=== PATIENT | female | born 1960 | race Caucasian/White ===

== ENCOUNTER 2022-12-04 08:57 | Outpatient (CLI) | payer MEDICAID, SELFPAY ==
--- NOTE | 2022-12-04 09:15 | XR_ITS ---
WS: [email or web address] XR knee RT 3V* [id number] REASON FOR EXAM: PAIN OF BILATERAL KNEE JOINTS FINDINGS: No fracture or focal bone lesion. Mild/moderate narrowing of the medial knee joint space with mild subchondral sclerosis. Lateral knee joint space is intact and well preserved. Patellofemoral joint space is intact without significant narrowing. Mild subchondral sclerosis and sm all osteophytosis of the patella. XR/XR knee RT 3V* [id number] IMPRESSION: Mild/moderate osteoarthritis in the right knee as above.
--- NOTE | 2022-12-04 09:24 | XR_ITS ---
WS: [email or web address] XR knee LT 3V* [id number] REASON FOR EXAM: PAIN IN BILATERAL KNEES FINDINGS: Moderate narrowing of the medial knee joint space with subchondral sclerosis and marginal osteophytos is. Lateral knee joint space is intact and well preserved. No significant narrowing of the patellofemoral joint space. Mild subchondral sclerosis and osteophyto sis of the patella. XR/XR knee LT 3V* [id number] IMPRESSION: Moderate osteoarthritis of the left knee as above.
== END 2022-12-04 08:58 | disposition home or self-care (01) ==
PROVIDERS: Family Provider Nurse Practitioner; Visit Provider Family Medicine
DX: M17.0 Bilateral primary osteoarthritis of knee (principal)
CPT/HCPCS: 73562

== ENCOUNTER 2022-12-08 07:47 | Outpatient (CLI) | payer MEDICAID, SELFPAY ==
--- NOTE | 2022-12-08 07:57 | MM_ITS ---
WS: [email or web address] SCREENING DIGITAL BREAST TOMOSYNTHESIS MAMMOGRAM WITH CAD HISTORY: SCREENING COMPARISON: 07/21/2016, 06/20/2016 Bilateral CC and MLO with tomosynthesis and synthetic mammography submitted. Computer aided detection analyzed. Breast composition: There are scattered areas of fibroglandular density. Since 2016 there are new small masses in the lateral RIGHT breast near 8-10 o'clock. The largest miriam ures 13 mm. May have been present on the prior study but much better seen on today's examination. The nodules throughout the LEFT breast are unchanged. MM/[place] [id number] IMPRESSION: BI-RADS: 0-Incomplete: Need additional imaging evaluation FOLLOW UP: Need Additional Imaging RIGHT breast: Spot compression views (CC and MLO). True ML. Ultrasound to follo w if abnormality persists.
== END 2022-12-08 07:48 | disposition home or self-care (01) ==
PROVIDERS: PCP Family Medicine; Visit Provider Family Medicine
DX: Z12.31 Encounter for screening mammogram for malignant neoplasm of breast (principal)
CPT/HCPCS: 77063; 77067

== ENCOUNTER 2023-01-06 08:20 | Outpatient (CLI) | payer MEDICAID, SELFPAY ==
--- NOTE | 2023-01-06 08:30 | MM_ITS ---
WS: [email or web address] ADDITIONAL VIEWS RIGHT MAMMOGRAM WITH DIGITAL BREAST TOMOSYNTHESIS. RIGHT BREAST ULTRASOUND HISTORY: ABNORMAL MAMMO COMPARISON: 12/08/2022 and 06/20/2016 RIGHT MAMMOGRAM: Spot compression views and true ML with digital breast tomosynthesis and SM. There are 2 adjacent breast masses in the upper-outer quadrant of the RIGHT breast. The largest measu res 12 mm near 11:00. Smaller mass at 10:00 measures 8 mm. These are at a middle depth and closely as sociated to each other. There is an additional calcification in the more posterior upper-outer quadra nt of the RIGHT breast. RIGHT BREAST ULTRASOUND 2-D and color Doppler imaging submitted. At 10:00, 4 cm from the nipple is a small cluster of hypoechoic nodules which are inseparable and no increased vascularity. The largest nodule is cluster measures 9 x 8 x 4 mm. There is no definite shad owing. This cluster corresponds to the more superior mass seen on the mammogram. At 9:00, 4 cm from n ipple is a simple cyst measuring 8 x 6 x 5 mm. MM/[place] [id number] IMPRESSION: BI-RADS: 4-Suspicious Finding-Biopsy Should Be Considered FOLLOW UP: Biopsy Recommended Ultrasound-guided biopsy recommended of the small cluster of hypoechoic masses in the RIGHT breast at 10:00. Appearance by ultrasound. Biopsy should be able t o include all of these nodules.
== END 2023-01-06 08:21 | disposition home or self-care (01) ==
PROVIDERS: PCP Family Medicine; Visit Provider Family Medicine
DX: R92.8 Other abnormal and inconclusive findings on diagnostic imaging of breast (principal); N63.12 Unspecified lump in the right breast, upper inner quadrant
CPT/HCPCS: 76642; 77061; G0279

== ENCOUNTER 2023-01-29 08:00 | Outpatient (CLI) | payer MEDICAID, SELFPAY ==
--- NOTE | 2023-01-29 08:38 | US_ITS ---
WS: [email or web address] ULTRASOUND RIGHT BREAST HISTORY: ABNORMAL MAMMOGRAPHY COMPARISON: 01/06/2023 and 12/08/2022 TECHNIQUE: 2-D and Doppler. Patient presents for possible biopsy of the hypoechoic mass in the RIGHT breast at 10:00. On today's imaging this mass appears less suspicious. May be a small cluster of complex cysts. There is no shado wing or increased vascularity. Area seem smaller in size than on the prior study. After discussing th is with the patient 6 month follow-up mammogram and ultrasound will be performed instead of biopsy. US/US breast RT limited* [id number] IMPRESSION: BI-RADS: 3-Probably Benign FOLLOW-UP: 6 Month Follow-up Recommend diagnostic RIGHT mammogram and ultrasound follow-up in 6 months.
== END 2023-01-29 08:01 | disposition home or self-care (01) ==
PROVIDERS: PCP Family Medicine; Visit Provider Family Medicine
DX: R92.8 Other abnormal and inconclusive findings on diagnostic imaging of breast (principal)
CPT/HCPCS: 76642

== ENCOUNTER 2023-08-04 10:52 | Outpatient (CLI) | payer MEDICAID, SELFPAY ==
--- NOTE | 2023-08-04 11:00 | MM_ITS ---
WS: [email or web address] RIGHT DIGITAL TOMOSYNTHESIS MAMMOGRAPHY WITH CAD. RIGHT breast ultrasound, limited HISTORY: 6MFU ABNORMAL MAMMO COMPARISON: 12/08/2022, 06/20/2016, 01/29/2023 Technique: CC, MLO and ML views. Spot compression RIGHT MLO and CC. Breast composition: There are scattered areas of fibroglandular density. Reidentified are multiple ma sses in the upper outer quadrant of the RIGHT breast. These are similar in size to the prior study. W ell-circumscribed mass at 10:00 measures 7 mm is noted to be a cyst on a prior study. There is an add itional lobulated mass measuring 10 x 12 mm near 10:00. This is a very poorly defined mass. This will also undergo ultrasound. These will be further evaluated by ultrasound. RIGHT breast ultrasound, limited Benign-appearing cyst at 9:00 is reidentified measuring 7 x 7 x 4 mm. There is an additional lobulated hypoechoic mass at 10:00, 3 cm from the nipple measuring 11 x 9 x 6 mm. This was described on prior studies. No increase in size and there is no increased vascularity. T his does correspond to the mammographic abnormality. Biopsy was attempted on 01/29/2023 of this area bu t was not well-defined at that time. No biopsy was performed. Seen slightly more prominent but not in creased in size today. IMPRESSION: MM/[place] [id number] BI-RADS: 4-Suspicious Finding-Biopsy Should Be Considered FOLLOW UP: Biopsy Recommended Ultrasound-guided biopsy recommended of the lobulated soft tissue mass at 10:00 . Slightly better visualized today than on the prior examination of 01/29/2023. I did discuss this with the patient at the time of this ultrasound exam. Notified Claritza Rojo DO at 08/04/2023 12:05 PM. Message left on [employer] service.
== END 2023-08-04 10:53 | disposition home or self-care (01) ==
PROVIDERS: PCP Family Medicine; Visit Provider Family Medicine
DX: R92.8 Other abnormal and inconclusive findings on diagnostic imaging of breast (principal); N63.11 Unspecified lump in the right breast, upper outer quadrant
CPT/HCPCS: 76642; 77061; G0279

== ENCOUNTER 2023-08-19 11:52 | Outpatient (CLI) | payer MEDICAID, SELFPAY ==
--- NOTE | 2023-08-19 12:00 | US_ITS ---
WS: [email or web address] ULTRASOUND-GUIDED RIGHT BREAST BIOPSY CLINICAL INFORMATION: ABNORMAL MAMMOGRAM COMPARISON: 08/04/2023 FINDINGS: The procedure including risks, benefits, and complications were discussed with the patient who agreed to proceed. Using sterile technique patient was prepped and draped in the usual sterile fashion. Aft er 1% lidocaine utilizing real-time ultrasound guidance 5 14-gauge cores were obtained of the RIGHT b reast lesion at the 10 o'clock position 3 cm from the nipple. Subsequently a titanium clip was placed in the biopsy cavity. No immediate complications. Pathology demonstrates Final Diagnosis Right breast, 10:00 position, 3.0 cm from nipple, needle core biopsy: 1. Fibroadenoma. 2. Negative for malignancy. IMPRESSION: 1. Uncomplicated ultrasound-guided RIGHT breast biopsy. 2. The pathology demonstrates fibroadenoma. Negative for malignancy. US/[place] [id number] BI-RADS: 2-Benign FOLLOW UP: 1 Year Follow-up Recommend return to annual screening mammography.
== END 2023-08-19 11:53 | disposition home or self-care (01) ==
LOC: RAD 11:53
PROVIDERS: PCP Family Medicine; Visit Provider Family Medicine
DX: D24.1 Benign neoplasm of right breast (principal); R92.8 Other abnormal and inconclusive findings on diagnostic imaging of breast
CPT/HCPCS: 19083; 88305

== ENCOUNTER → 2024-01-06 15:56 | Outpatient (BNVA) | payer MEDICAID, SELFPAY | PROVIDERS: PCP Family Medicine; Referring Provider General Practice; Visit Provider Internal Medicine Cardiovascular Disease | DX: R07.9 Chest pain, unspecified (principal); I45.10 Unspecified right bundle-branch block | CPT/HCPCS: 93005 ==

== ENCOUNTER 2024-01-11 09:56 | Outpatient (CLI) | payer MEDICAID, SELFPAY ==
--- NOTE | 2024-01-11 10:15 | USCV_ITS ---
Miriam Renteria Age: 63 Gender: F : 1960 Exam Date: 01/11/2024 10:21 Ordering Phys: Reji Baker MD ([email or web address]) Technologist: ANURADHA [place] [facility] [place]: SOB, Abnormal EKG BP: 120 / 64 HR: 136 Rhythm: Sinus Technical Quality: MEASUREMENTS (Male / Female) Normal Values 2D ECHO LV Diastolic Diameter PLAX 4.4 cm 4.2 - 5.9 / 3.9 - 5.3 cm IVS Diastolic Thickness 1.3 cm 0.6 - 1.0 / 0.6 - 0.9 cm IVS Systolic Thickness 1.5 cm LVPW Diastolic Thickness 1.2 cm 0.6 - 1.0 / 0.6 - 0.9 cm LVPW Systolic Thickness 1.5 cm LVOT Diameter 2.0 cm LV Ejection Fraction 2D Teich 62.6 % LV Ejection Fraction MOD 2C 63.5 % LV Ejection Fraction 2C AL 62.1 % LA Diameter 2.4 cm RA Systolic Volume 4C AL 23.0 ml RA Systolic Volume 4C MOD 22.9 ml Aorta at Sinotubular Diameter 1.8 cm IVC Diameter 1.6 cm M-MODE LA Ao Ratio MM 1.1 AV Cusp Separation MM 1.7 cm DOPPLER AV Peak Velocity 150.0 cm/s LVOT Peak Velocity 134.0 cm/s AV Area Cont Eq vti 2.7 cm squared AV Area Cont Eq pk 2.8 cm squared MV Peak Velocity 105.0 cm/s MV Area PHT 2.6 cm squared Mitral E to A Ratio 0.8 TV Peak Velocity 248.3 cm/s TR Peak Velocity 256.0 cm/s TR Peak Gradient 26.2 mmHg TR Mean Velocity 195.0 cm/s TR Mean Gradient 17.4 mmHg TR Velocity Time Integral 75.3 cm TV Peak E Velocity 83.0 cm/s Right Atrial Pressure 3.0 mmHg Pulmonary Artery Systolic Pressu 29.2 mmHg PV Peak Velocity 100.0 cm/s RV Ejection Time 0.3 s FINDINGS Left Ventricle Normal left ventricular size and systolic function, EF 63%.mild left ventricular hypertrophy. No regional wall motion abnormalities. Grade I/IV diastolic dysfunction (abnormal relaxation filling pattern), normal to mildly elevated filling pressures. Right Ventricle The right ventricle is normal in size and function. Right Atrium The right atrium is normal in size. Left Atrium The left atrium is normal in size. Mitral Valve No gross abnormalities noted Aortic Valve No gross abnormalities noted Tricuspid Valve Moderate tricuspid valve regurgitation. Estimated pulmonary artery peak systolic pressure of 27 mmHg Pulmonic Valve Pulmonic valve not well visualized. Pericardium Normal pericardium without effusion. Aorta Normal ascending aorta dimension. IVC Possibly of normal size CONCLUSIONS Normal left ventricular size and systolic function, EF 63%.mild left ventricular hypertrophy. No regional wall motion abnormalities. Grade I/IV diastolic dysfunction (abnormal relaxation filling pattern), normal to mildly elevated filling pressures. Moderate tricuspid valve regurgitation. Estimated pulmonary artery peak systolic pressure of 27 mmHg. There is no pericardial effusion. There are no intracardiac masses. No similar previous studies are available for comparison Dr Reji Baker MD FAC (Electronically Signed) Final Date: 13 January 2024 08:34 S
== END 2024-01-11 09:57 | disposition home or self-care (01) ==
LOC: RAD 09:56
PROVIDERS: PCP Family Medicine; Visit Provider Internal Medicine Cardiovascular Disease
DX: I07.1 Rheumatic tricuspid insufficiency (principal); R94.31 Abnormal electrocardiogram [ECG] [EKG]
CPT/HCPCS: 93306

== ENCOUNTER 2024-02-05 11:36 | Outpatient (CLI) | payer MEDICAID, SELFPAY ==
--- NOTE | 2024-02-05 | ECG_ITS ---
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 Interpretive Statements NAME OF STUDY: TREADMILL STRESS TEST INDICATION: Chest Pain PROCEDURE: At the baseline, the patient's blood pressure was 167/95 with a heart rate of 91. The baseline electrocardiogram showed normal sinus rhythm with normal ST-Ts. 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 Left axis deviation. Voltage criteria for LVH.. The patient exercised for 7 minutes and 49 seconds on a standard Dayron protocol. Patient attained a maximum heart rate of 160 beats per minute(101% of the maximum predicted heart rate) with a blood pressure at the peak exercise of 198/109 mm Hg. The EKG at the peak exercise revealed no significant changes. Patient did not have any chest pain or any significant cardiac arrhythmias with the exercise During the recovery phase, there were no new changes. Blood pressure at the end of the recovery phase was 164/91 mm Hg with a heart rate of 92 per minute. CONCLUSION: 1. Normal EKG response to treadmill exercise 2. No exercise-induced chest pain or cardiac arrhythmia 3. Fair exercise tolerance, attained a maximum of 10.2 METs Electronically Signed On 02-15-2024 9:18:28 CDT by Reji Baker M.D. [email or web address]
[2024-02-05 11:54] VITALS: BMI 26.4
[2024-02-05 13:06] VITALS: BP 164/94; PULSE 92
== END 2024-02-05 11:37 | disposition home or self-care (01) ==
PROVIDERS: PCP Family Medicine; Visit Provider Internal Medicine Cardiovascular Disease
DX: Z98.61 Coronary angioplasty status (principal)
CPT/HCPCS: 93017

== ENCOUNTER 2024-03-02 09:47 | Day surgery (SDC) | payer MEDICAID, SELFPAY ==
[2024-03-02 10:03] VITALS: BP 158/109; PULSE 96; RESP 16; TEMP 36.2; O2SAT 97; BMI 26.6
[2024-03-02] MEDS: sodium chloride 0.9% 1,000 ML 30 ML IV (10:16)
--- NOTE | 2024-03-02 10:55 | ANES.PREANE2 ---
Pre-Anesthetic Assessment Height/Weight: Height 1.7 m Weight 77.111 kg Temp Pulse Resp BP Pulse Ox O2 Del Method 97.2 F L 96 16 158/109 97 Room Air 03/02/24 10:03 03/02/24 10:03 03/02/24 10:03 03/02/24 10:03 03/02/24 10:03/02/24 10:03 Preop Diagnosis: Screening Operation Date: 03/02/24 11:00 Proposed Procedures p Colonoscopy 00558 , G0105, R19.5(Not Applicable) - Osman Echols DO Familial anesthetic complications: none Was Beta Ayla taken within 24 hours: N/A Was Clonidine taken within 24 hours: N/A Last intake: Intake Last Liquid Date 03/01/24 Last Liquid Time 21:00 Last Solid Date 02/29/24 Last Solid Time 20:00 Last Intake: 21:00 Social No alcohol and No tobacco Exam alert, oriented x 3, clear to auscultation bilaterally and regular rate & rhythm Airway Submandibular: within normal limits Cervical ROM: within normal limits Mallampati: Class I Dentition: false Pulmonary None reported CV/HEM Hypertension Neg stress test last month None reported Hepatic None reported GI None reported Metabolic Thyroid Disease Musc/sk Lower Back Pain and Osteoarthritis/DJD Neuropsych None reported Anesthetic Plan ASA status: 2 Anesthesia: MAC Risk of > 500 ml blood loss (7ml/kg in children): No Medications/Allergies Home Medications Medication Instructions Recorded Confirmed Last Taken Type hydrochlorothiazide 25 mg tablet 12.5 mg PO DAILY 01/06/24 03/02/24 03/01/24 History krill oil 500 mg capsule 500 mg PO DAILY 01/06/24 03/02/24 03/01/24 History levothyroxine 25 mcg capsule 25 mcg PO DAILY 01/06/24 03/02/24 03/01/24 History losartan 25 mg tablet 25 mg PO BEDTIME 01/06/24 03/02/24 03/01/24 History cartilage 40 mg-collagen II-boron 1 tab PO DAILY 03/01/24 03/02/24 03/01/24 History 5 mg-hyaluronate sod 3.3 mg tablet (Move Free Ultra Triple Action (boron)) ezetimibe 10 mg tablet (Zetia) 10 mg PO DAILY 03/01/24 03/02/24 03/01/24 History Allergies Allergy/AdvReac Type Severity Reaction Status Date / Time statins Allergy Mild Unknown Uncoded 03/02/24 10:02 Current Medications Generic Name Dose Route Start Last Admin Trade Name Juancho PRN Reason Stop Dose Admin Sodium Chloride 1,000 mls @ 30 mls/hr 03/02/24 10:00 03/02/24 10:16 Sodium Chloride 0.9% IV 03/03/24 09:59 30 mls/hr .Q24H BAILEY Administration PFSH Anesthesia Medical History Hyperthyroidism Hypertension Hyperlipidemia Tonsillectomy planned Surgical History H/O lumpectomy H/O tubal ligation Family History Father Cancer Other Heart disease Hyperthyroidism Stroke Denies family history of Anemia Aneurysm Arrhythmia Atrial fibrillation TIA (transient ischemic attack) Sudden cardiac Social History Smoking and tobacco/nicotine status: former use of tobacco/nicotine Second hand smoke exposure: Yes Alcohol intake: never Substance/Drug Use: never Additional social history: marijuana use Adopted: No Caregiver/support person: No Data Anesthesia Cardiac Studies: Echocardiogram 01/11/24
--- NOTE | 2024-03-02 11:25 | W.PM.OPSUD ---
Surgery/Procedure H&P Update DATE OF PROCEDURE: March 02, 2024 DATE H&P PERFORMED: 02/05/24 H&P UPDATE INFORMATION: I have reviewed H&P completed within last 30 days, I have examined patient prior to procedure and No changes to prior documentation PREOP DIAGNOSIS: Screening PLANNED PROCEDURE: Operation Date: 03/02/24 11:00 Proposed Procedures p Colonoscopy 22377 , G0105, R19.5(Not Applicable) - Osman Echols DO
[2024-03-02 11:58] VITALS: BP 120/83; PULSE 81; RESP 18; TEMP 36.3; O2SAT 95
[2024-03-02 12:08] VITALS: BP 132/90; PULSE 78; RESP 18; O2SAT 95
[2024-03-02 12:20] VITALS: BP 160/90; PULSE 70; RESP 18; O2SAT 96
--- NOTE | 2024-03-02 12:30 | ANE.PACU2 ---
Inpatient post-anesthesia follow up: Airway intact: Yes Vital signs: Temperature 97.3 F Pulse Rate 70 Respiratory Rate 18 Blood Pressure 160/90 Pulse Oximetry 96 Oxygen Delivery Me thod Room Air Oxygen Flow Rate Fraction of Inspir ed Oxygen Hydration adequate: Yes Nausea and vomiting: No Pain level: 1 Mental status: Baseline
== END 2024-03-02 12:30 | disposition home or self-care (01) ==
PROVIDERS: PCP Family Medicine; Visit Provider Surgery
PROC: 0DJD8ZZ Inspection of Lower Intestinal Tract, Via Natural or Artificial Opening Endoscopic (ICD-10-PCS; CPT 45378; principal; 2024-03-02 11:00)
DX: Z12.11 Encounter for screening for malignant neoplasm of colon (principal); K64.8 Other hemorrhoids; K63.5 Polyp of colon; I10 Essential (primary) hypertension; E03.9 Hypothyroidism, unspecified; E78.5 Hyperlipidemia, unspecified; Z87.891 Personal history of nicotine dependence
CPT/HCPCS: 45385; 88305; J2704; J7030